=== PATIENT | male | born 1955 | race Caucasian/White ===

== ENCOUNTER 2021-05-13 09:53 | Day surgery (SDC) | payer MEDICARE, BC ==
[~2021-05-13 09:53] MED LIST: Acetaminophen 325 MG Tab PO SCH; Lactated Ringers 1,000 ML IV SCH; Lidocaine 1%/Sod Bicarbonate in NS 8.4% 1 ML Syringe IDERM PRN; Morphine 8 MG, EPINEPHrine 0.3 MG, Cefuroxime 750 MG, Ketorolac 30 MG, Sodium Chloride ... PRN; Pregabalin 25 MG Cap PO SCH; Sodium Chloride 0.9% 10 ML Syringe FLUSH PRN; Sodium Chloride 0.9% 10 ML Syringe FLUSH SCH; oxyCODONE ER 10 MG TAB.ER PO SCH
[2021-05-13] MEDS ORDERED: Vancomycin 1 GM SDV ONE (10:55)
[2021-05-13] MEDS ORDERED: ceFAZolin 1 GM Vial ONE (11:26)
[2021-05-13] MEDS ORDERED: fentaNYL 100 MCG/2 ML SDV ONE (11:26)
[2021-05-13] MEDS ORDERED: Propofol 200 MG/20 ML SDV ONE ×2 (11:26→14:09)
[2021-05-13] MEDS ORDERED: Lactated Ringers 1,000 ML ONE (11:26)
[2021-05-13] MEDS ORDERED: Midazolam 1 MG/ML 2 ML SDV ONE (11:27)
[2021-05-13] MEDS ORDERED: Ondansetron 4 MG/2 ML SDV IVPUSH PRN (13:09)
[2021-05-13] MEDS ORDERED: HYDROmorphone 0.5 MG/0.5 ML Syringe IVPUSH PRN (13:09)
[2021-05-13] MEDS ORDERED: fentaNYL 100 MCG/2 ML SDV IVPUSH PRN (13:09)
[2021-05-13] MEDS ORDERED: Ketorolac 15 MG/ML SDV ONE (13:12)
[2021-05-13] MEDS ORDERED: ePHEDrine 50 MG/ML SDV ONE (13:13)
[2021-05-13] MEDS: Vancomycin 1 GM SDV ONE ×2 (13:37→14:06)
[2021-05-13] MEDS: Morphine 8 MG, EPINEPHrine 0.3 MG, Cefuroxime 750 MG, Ketorolac 30 MG, Sodium Chloride ... PRN ×10 (13:37→14:05)
== END 2021-05-13 17:57 | disposition home or self-care (01) ==
LOC: JD.SDS 09:53
PROVIDERS: ATTEND Orthopaedic Surgery
DX: M16.11 Unilateral primary osteoarthritis, right hip (principal); I44.4 Left anterior fascicular block; I10 Essential (primary) hypertension; Z79.899 Other long term (current) drug therapy; Z91.030 Bee allergy status; Z98.890 Other specified postprocedural states
CPT/HCPCS: 27130; 36415; 73501; 85730; 86850; 86900; 86901; 97110; 97116; 97161; A9270; C1713; C1776; J0171; J0690; J0697; J1885; J2250; J2270; J2704; J3010; J3370; J7120; 01214